=== PATIENT | female | born 1990 | race Two or more races ===

== ENCOUNTER 2021-05-29 14:47 | Observation (INO) | payer MEDICAID ==
[~2021-05-29] VITALS: Ht 162.6 cm; Wt 71.7 kg
[2021-05-29] MEDS ORDERED: PREN-96 PO (15:35)
[2021-05-29 16:30] LABS: Basophils # (auto) 0.1 10 ^3/uL (0-0.2); Basophils % (auto) 0.4 % (0.0-2.0); Eosinophils # (auto) 0.1 10 ^3/uL (0-0.8); Eosinophils % (auto) 0.9 % (0.0-7.0); Hematocrit 32.8 % (36.0-46.0); Hemoglobin 11.4 g/dL (12.2-16.2); Lymphocytes # (auto) 2.3 10 ^3/uL (0.4-5.4); Mean Corpuscular Hgb Conc. 34.6 g/dL (32.0-36.0); Mean Corpuscular Volume 92.4 fL (80.0-100.0); Monocytes # (auto) 1.1 10 ^3/uL (0-1.3); Neutrophils # (auto) 9.2 10 ^3/uL (1.6-8.6); Neutrophils % (auto) 71.7 % (37.0-80.0); Nucleated Red Blood Cells % 0.1 %; Red Blood Cells 3.55 10^6/uL (4.0-5.20); Red Cell Distribution Width 13.1 % (11.8-14.3); White Blood Cell 12.8 10^3/uL (4.4-10.8)
[2021-05-29 16:42] LABS: Albumin 2.7 g/dL (3.4-5.0); Calcium 8.6 mg/dL (8.5-10.1); Potassium 3.7 mmol/L (3.5-5.1)
[2021-05-29 16:46] LABS: BUN/Creatinine Ratio 14.6; Bilirubin, Total 0.2 mg/dL (0.2-1.0); INR 1.01 (0.9-1.15); Partial Thromboplastin Time 24.3 sec (23.6-33.0); Total Protein 7.3 g/dL (6.4-8.2); Uric Acid 2.3 mg/dL (2.6-6.0)
[2021-05-29 16:56] LABS: Urine Bacteria FEW /hpf (None Seen); Urine Blood Negative /uL (Negative); Urine Specific Gravity 1.004 (1.001-1.035); Urine WBC 12 /hpf (0 - 5)
== END 2021-05-29 17:18 | disposition home or self-care (01) ==
LOC: EDBD → LDRP 14:47
PROVIDERS: ADMIT Obstetrics & Gynecology Obstetrics; ATTEND Obstetrics & Gynecology Obstetrics
DX: O26.893 Other specified pregnancy related conditions, third trimester (principal); R03.0 Elevated blood-pressure reading, without diagnosis of hypertension; O62.9 Abnormality of forces of labor, unspecified; Z3A.29 29 weeks gestation of pregnancy; Z87.59 Personal history of other complications of pregnancy, childbirth and the puerperium
CPT/HCPCS: 36415; 59025; 80053; 81001; 81002; 84550; 85025; 85362; 85379; 85610; 85730; 94760; G0378

== ENCOUNTER 2021-06-03 09:06 | Observation (INO) | payer MEDICAID ==
[~2021-06-03 09:06] MED LIST: PREN-96 PO
[2021-06-03 10:32] LABS: Protein, Urine 8.1 mg/dL (0.0-11.9)
[2021-06-03 11:00] LABS: 24 Hr. Total Protein, Urine 218.7 mg/24 Hr (<149.1)
[2021-06-03 14:21] LABS: Urine Bacteria NONE SEEN /hpf (None Seen); Urine Blood Negative /uL (Negative); Urine WBC 4 /hpf (0 - 5)
[2021-06-03 14:33] LABS: Protein, Urine 7.8 mg/dL (0.0-11.9)
== END 2021-06-03 10:33 | disposition home or self-care (01) ==
LOC: LDRP 09:06
PROVIDERS: ADMIT Obstetrics & Gynecology; ATTEND Obstetrics & Gynecology
DX: O13.3 Gestational [pregnancy-induced] hypertension without significant proteinuria, third trimester (principal); Z3A.30 30 weeks gestation of pregnancy; Z79.899 Other long term (current) drug therapy
CPT/HCPCS: 59025; 81001; 81002; 82570; 84156; 94760; G0378

== ENCOUNTER 2021-06-07 14:55 | Observation (INO) | payer MEDICAID | END 2021-06-08 11:47 | disposition home or self-care (01) | LOC: LDRP 06-08 09:00 | PROVIDERS: ADMIT Obstetrics & Gynecology; ATTEND Obstetrics & Gynecology | DX: O13.3 Gestational [pregnancy-induced] hypertension without significant proteinuria, third trimester (principal); O09.293 Supervision of pregnancy with other poor reproductive or obstetric history, third trimester; Z3A.30 30 weeks gestation of pregnancy | CPT/HCPCS: 59025; 76818; 81002; 94760; G0378 ==

== ENCOUNTER 2021-06-12 14:10 | Observation (INO) | payer MEDICAID ==
[2021-06-12 15:58] LABS: Urine Bacteria NONE SEEN /hpf (None Seen); Urine Blood Negative /uL (Negative); Urine Specific Gravity 1.002 (1.001-1.035); Urine WBC 1 /hpf (0 - 5)
[2021-06-12 16:09] LABS: Albumin 2.6 g/dL (3.4-5.0); Calcium 8.8 mg/dL (8.5-10.1)
[2021-06-12 16:09] LABS: Protein, Urine < 5.0 mg/dL (0.0-11.9)
[2021-06-12 16:12] LABS: Bilirubin, Total 0.2 mg/dL (0.2-1.0); Total Protein 7.3 g/dL (6.4-8.2); Uric Acid 2.4 mg/dL (2.6-6.0)
[2021-06-12 16:13] LABS: Basophils # (auto) 0 10 ^3/uL (0-0.2); Basophils % (auto) 0.3 % (0.0-2.0); Eosinophils # (auto) 0.1 10 ^3/uL (0-0.8); Eosinophils % (auto) 0.8 % (0.0-7.0); Hematocrit 32.6 % (36.0-46.0); Hemoglobin 11.2 g/dL (12.2-16.2); Lymphocytes # (auto) 2.1 10 ^3/uL (0.4-5.4); Lymphocytes % (auto) 15.8 % (10.0-50.0); Mean Corpuscular Hemoglobin 31.9 pg (28.0-32.0); Mean Corpuscular Hgb Conc. 34.5 g/dL (32.0-36.0); Mean Corpuscular Volume 92.7 fL (80.0-100.0); Monocytes # (auto) 1.2 10 ^3/uL (0-1.3); Monocytes % (auto) 9.4 % (0.0-12.0); Neutrophils # (auto) 9.6 10 ^3/uL (1.6-8.6); Neutrophils % (auto) 73.7 % (37.0-80.0); Nucleated Red Blood Cells % 0.1 %; Red Blood Cells 3.52 10^6/uL (4.0-5.20); Red Cell Distribution Width 12.7 % (11.8-14.3)
[2021-06-12 16:19] LABS: Creatinine, Urine 6 mg/dL (30.0-125.0)
[2021-06-12 16:48] LABS: Partial Thromboplastin Time 23.6 sec (23.6-33.0)
== END 2021-06-12 17:01 | disposition home or self-care (01) ==
LOC: LDRP 14:10
PROVIDERS: ADMIT Obstetrics & Gynecology Obstetrics; ATTEND Obstetrics & Gynecology Obstetrics
DX: O99.891 Other specified diseases and conditions complicating pregnancy (principal); R00.0 Tachycardia, unspecified; M54.9 Dorsalgia, unspecified; O26.893 Other specified pregnancy related conditions, third trimester; R10.11 Right upper quadrant pain; O99.343 Other mental disorders complicating pregnancy, third trimester; F41.9 Anxiety disorder, unspecified; Z3A.31 31 weeks gestation of pregnancy; Z87.59 Personal history of other complications of pregnancy, childbirth and the puerperium
CPT/HCPCS: 36415; 59025; 80053; 81001; 81002; 82570; 84156; 84550; 85025; 85610; 85730; G0378

== ENCOUNTER 2021-06-15 09:00 | Observation (INO) | payer MEDICAID | END 2021-06-15 11:26 | disposition home or self-care (01) | LOC: LDRP 09:00 | PROVIDERS: ADMIT Obstetrics & Gynecology; ATTEND Obstetrics & Gynecology | DX: O13.3 Gestational [pregnancy-induced] hypertension without significant proteinuria, third trimester (principal); Z3A.31 31 weeks gestation of pregnancy | CPT/HCPCS: 59025; 76818; 81002; 94760; G0378 ==

== ENCOUNTER 2021-06-23 13:00 | Observation (INO) | payer MEDICAID | END 2021-06-23 15:18 | disposition home or self-care (01) | LOC: LDRP 13:00 | PROVIDERS: ADMIT Obstetrics & Gynecology; ATTEND Obstetrics & Gynecology | DX: O13.3 Gestational [pregnancy-induced] hypertension without significant proteinuria, third trimester (principal); Z3A.33 33 weeks gestation of pregnancy | CPT/HCPCS: 59025; 76818; 81002; G0378 ==

== ENCOUNTER 2021-06-30 09:56 | Observation (INO) | payer MEDICAID | END 2021-06-30 16:05 | disposition home or self-care (01) | LOC: LDRP 13:15 → EDBD 13:15 | PROVIDERS: ADMIT Obstetrics & Gynecology; ATTEND Obstetrics & Gynecology | DX: O13.3 Gestational [pregnancy-induced] hypertension without significant proteinuria, third trimester (principal); Z3A.34 34 weeks gestation of pregnancy; Z87.59 Personal history of other complications of pregnancy, childbirth and the puerperium; Z91.040 Latex allergy status | CPT/HCPCS: 59025; 76818; 81002; G0378 ==

== ENCOUNTER 2021-07-06 08:01 | Observation (INO) | payer MEDICAID ==
[~2021-07-06] VITALS: Ht 162.6 cm; Wt 83.5 kg
== END 2021-07-07 15:10 | disposition home or self-care (01) ==
LOC: LDRP 07-07 12:50
PROVIDERS: ADMIT Obstetrics & Gynecology; ATTEND Obstetrics & Gynecology
DX: O13.3 Gestational [pregnancy-induced] hypertension without significant proteinuria, third trimester (principal); O62.9 Abnormality of forces of labor, unspecified; Z3A.35 35 weeks gestation of pregnancy
CPT/HCPCS: 59025; 81002; 94760; G0378; 76818

== ENCOUNTER 2021-07-14 11:30 | Observation (INO) | payer MEDICAID ==
[2021-07-14 14:17] LABS: Urine Bacteria FEW /hpf (None Seen); Urine Blood Negative /uL (Negative); Urine Hyaline Cast FEW /lpf (0 - 2); Urine WBC 23 /hpf (0 - 5)
[2021-07-14 14:20] LABS: Protein, Urine 7.7 mg/dL (0.0-11.9)
[2021-07-14 14:21] LABS: Protein, Urine 16.8 mg/dL (0.0-11.9)
[2021-07-14 14:46] LABS: Basophils # (auto) 0 10 ^3/uL (0-0.2); Basophils % (auto) 0.2 % (0.0-2.0); Eosinophils # (auto) 0.1 10 ^3/uL (0-0.8); Eosinophils % (auto) 1.1 % (0.0-7.0); Hematocrit 33.8 % (36.0-46.0); Hemoglobin 11.4 g/dL (12.2-16.2); Lymphocytes # (auto) 2.2 10 ^3/uL (0.4-5.4); Lymphocytes % (auto) 18.8 % (10.0-50.0); Mean Corpuscular Hemoglobin 31.5 pg (28.0-32.0); Mean Corpuscular Hgb Conc. 33.9 g/dL (32.0-36.0); Monocytes # (auto) 1.1 10 ^3/uL (0-1.3); Monocytes % (auto) 9.6 % (0.0-12.0); Neutrophils # (auto) 8.3 10 ^3/uL (1.6-8.6); Neutrophils % (auto) 70.3 % (37.0-80.0); Red Blood Cells 3.63 10^6/uL (4.0-5.20); Red Cell Distribution Width 13.1 % (11.8-14.3); White Blood Cell 11.8 10^3/uL (4.4-10.8)
[2021-07-14 15:02] LABS: Albumin 2.5 g/dL (3.4-5.0); Calcium 8.6 mg/dL (8.5-10.1); INR 0.96 (0.9-1.15); Partial Thromboplastin Time 22.8 sec (23.6-33.0)
[2021-07-14 15:06] LABS: BUN/Creatinine Ratio 14.3; Bilirubin, Total 0.2 mg/dL (0.2-1.0); Total Protein 7.3 g/dL (6.4-8.2); Uric Acid 2.4 mg/dL (2.6-6.0)
[2021-07-14] MEDS ORDERED: CEPH-322 PO (15:47)
== END 2021-07-14 16:10 | disposition home or self-care (01) ==
LOC: LDRP 13:00
PROVIDERS: ADMIT Obstetrics & Gynecology; ATTEND Obstetrics & Gynecology
DX: O13.3 Gestational [pregnancy-induced] hypertension without significant proteinuria, third trimester (principal); O99.891 Other specified diseases and conditions complicating pregnancy; M54.9 Dorsalgia, unspecified; Z3A.36 36 weeks gestation of pregnancy
CPT/HCPCS: 36415; 59025; 76818; 80053; 81001; 81002; 82570; 84156; 84550; 85025; 85610; 85730; 94760; G0378

== ENCOUNTER 2021-07-18 13:50 | Observation (INO) | payer MEDICAID ==
[~2021-07-18 13:50] MED LIST changes: +CEPH-322 PO
== END 2021-07-18 16:39 | disposition home or self-care (01) ==
LOC: LDRP 13:50
PROVIDERS: ADMIT Obstetrics & Gynecology; ATTEND Obstetrics & Gynecology
DX: O42.92 Full-term premature rupture of membranes, unspecified as to length of time between rupture and onset of labor (principal); Z3A.37 37 weeks gestation of pregnancy
CPT/HCPCS: 59025; 76818; 81002; 84112; 94760; G0378; Q0114

== ENCOUNTER 2021-07-21 13:15 | Observation (INO) | payer MEDICAID | END 2021-07-21 15:54 | disposition home or self-care (01) | LOC: LDRP 13:15 | PROVIDERS: ADMIT Obstetrics & Gynecology; ATTEND Obstetrics & Gynecology | DX: O13.3 Gestational [pregnancy-induced] hypertension without significant proteinuria, third trimester (principal); Z3A.38 38 weeks gestation of pregnancy | CPT/HCPCS: 59025; 76818; 81002; 94760; G0378 ==

== ENCOUNTER 2021-07-25 08:04 | Observation (INO) | payer MEDICAID | END 2021-07-25 16:20 | disposition home or self-care (01) | LOC: LDRP 14:42 | PROVIDERS: ADMIT Obstetrics & Gynecology; ATTEND Obstetrics & Gynecology | DX: O13.3 Gestational [pregnancy-induced] hypertension without significant proteinuria, third trimester (principal); Z3A.38 38 weeks gestation of pregnancy | CPT/HCPCS: 59025; 76818; 81002; 94760; G0378 ==

== ENCOUNTER 2021-07-28 14:26 | Observation (INO) | payer MEDICAID | END 2021-07-30 14:35 | disposition home or self-care (01) | LOC: LDRP 07-30 13:04 | PROVIDERS: ADMIT Obstetrics & Gynecology Obstetrics; ATTEND Obstetrics & Gynecology Obstetrics | DX: O62.9 Abnormality of forces of labor, unspecified (principal); O34.63 Maternal care for abnormality of vagina, third trimester; N89.8 Other specified noninflammatory disorders of vagina; Z3A.38 38 weeks gestation of pregnancy | CPT/HCPCS: 59025; 81002; 94760; G0378 ==

== ENCOUNTER 2021-07-31 10:55 | Inpatient (IN) | payer MEDICAID ==
[~2021-07-31] VITALS: Ht 157.5 cm; Wt 88.5 kg
[2021-07-31 12:22] LABS: Basophils # (auto) 0 10 ^3/uL (0-0.2); Basophils % (auto) 0.3 % (0.0-2.0); Eosinophils # (auto) 0.1 10 ^3/uL (0-0.8); Eosinophils % (auto) 0.4 % (0.0-7.0); Hematocrit 35.1 % (36.0-46.0); Lymphocytes # (auto) 2.7 10 ^3/uL (0.4-5.4); Mean Corpuscular Hemoglobin 31.6 pg (28.0-32.0); Mean Corpuscular Hgb Conc. 34.2 g/dL (32.0-36.0); Mean Corpuscular Volume 92.3 fL (80.0-100.0); Monocytes % (auto) 8.2 % (0.0-12.0); Neutrophils % (auto) 68.1 % (37.0-80.0); Nucleated Red Blood Cells % 0.2 %; Red Blood Cells 3.81 10^6/uL (4.0-5.20); Red Cell Distribution Width 13.4 % (11.8-14.3); White Blood Cell 11.7 10^3/uL (4.4-10.8)
[2021-07-31 12:27] LABS: Urine Bacteria NONE SEEN /hpf (None Seen); Urine Blood Negative /uL (Negative); Urine Specific Gravity 1.009 (1.001-1.035); Urine WBC 2 /hpf (0 - 5)
[2021-07-31 12:33] LABS: Albumin 2.9 g/dL (3.4-5.0); BUN/Creatinine Ratio 14.6; Calcium 8.7 mg/dL (8.5-10.1)
[2021-07-31 12:36] LABS: Bilirubin, Total 0.2 mg/dL (0.2-1.0); Total Protein 7.3 g/dL (6.4-8.2)
[2021-07-31 12:38] LABS: INR 0.92 (0.9-1.15); Partial Thromboplastin Time 23.8 sec (23.6-33.0)
[2021-07-31 12:42] LABS: Alcohol, Urine < 3.0 mg/dL (0-10); Amphetamine Screen, Urine NEGATIVE (NEGATIVE); Barbiturate Scree,Urine NEGATIVE (NEGATIVE); Benzodiazephine Screen, Urine NEGATIVE (NEGATIVE); Cannabinoid Screen, Urine NEGATIVE (NEGATIVE); Cocaine Screen, Urine NEGATIVE (NEGATIVE); Opiate Scree,Urine NEGATIVE (NEGATIVE); Phencyclidine Screen, Urine NEGATIVE (NEGATIVE)
[2021-07-31] MEDS ORDERED: LACTATED RINGER'S 1,000 ML IV ONE (13:45)
[2021-07-31] MEDS ORDERED: MORPHINE SULF PF 5 MG/10 ML VIAL ONE (14:04)
[2021-07-31] MEDS ORDERED: GLYCOPYRROLATE 0.2 MG/ML 1ML VIAL ONE (14:04)
[2021-07-31] MEDS ORDERED: fentaNYL CITRATE 100 MCG/2 ML VL ONE (14:04)
[2021-07-31] MEDS ORDERED: KETOROLAC TROMETH 30 MG/ML 1ML VIAL ONE (14:04)
[2021-07-31] MEDS ORDERED: ePHEDrine SULFATE 50 MG/ML AMP ONE ×2 (14:04→17:47)
[2021-07-31] MEDS ORDERED: ONDANSETRON HCL 4 MG/2 ML VIAL ONE (14:04)
[2021-07-31] MEDS ORDERED: ceFAZolin 2 GM in D5W 5% 100 ML IV ONE (14:15)
[2021-07-31] MEDS ORDERED: oxyTOCIN 10 UNIT/ML 10ML VIAL ONE (14:58)
[2021-07-31] MEDS: LACTATED RINGER'S 1,000 ML IV SCH (16:35)
[2021-07-31] MEDS ORDERED: TETRACAINE 1% INJ 2 ML VIAL IJ ONE (17:01)
[2021-07-31] MEDS ORDERED: DexAMETHasone SOD PHOS 10MG/1ML VIAL INJ ONE (17:47)
[2021-07-31] MEDS ORDERED: MORPHINE SULFATE 4 MG/ML SYR/VIAL IV PRN (18:15)
[2021-07-31] MEDS ORDERED: HYDROmorphone HCL 2 MG/ML VL/or syr IV PRN (18:15)
[2021-07-31] MEDS ORDERED: METOCLOPRAMIDE HCL 5MG/ml INJ 2ml VIAL IV PRN (18:15)
[2021-07-31] MEDS ORDERED: NALOXONE HCL 0.4 MG/ML VIAL IV PRN (18:15)
[2021-07-31 19:30] VITALS: BP 112/73
[2021-07-31] MEDS ORDERED: ONDANSETRON HCL 4 MG/2 ML VIAL IV PRN (19:30)
[2021-07-31] MEDS ORDERED: KETOROLAC TROMETH 30 MG/ML 1ML VIAL IV PRN (19:30)
[2021-07-31] MEDS ORDERED: ePHEDrine SULFATE 50 MG/ML AMP IV PRN (19:30)
[2021-07-31] MEDS ORDERED: SIMETHICONE 80 MG CHEWABLE TABLET PO PRN (19:30)
[2021-07-31] MEDS ORDERED: GUM (CHEWING) 1 GUM CHEW CHEW ONE (19:30)
[2021-07-31 20:30] VITALS: BP 125/80
[2021-07-31] MEDS: diphenhdrAMINE HCL 50 MG/1 ML VL IV PRN (20:30)
[2021-07-31 21:30] VITALS: BP 131/76
[2021-07-31] MEDS ORDERED: RHO (D) IMMUNE GLOBULIN 300 MCG INJ IM ONE (21:30)
[2021-07-31] MEDS: DOCUSATE SOD 100 MG CAP PO SCH (22:00)
[2021-07-31 22:30] VITALS: BP 131/80
[2021-07-31 23:30] VITALS: BP 114/74
[2021-08-01] VITALS (18 sets, daily range): BP systolic 101–131; BP diastolic 59–77
[2021-08-01] MEDS: LACTATED RINGER'S 1,000 ML IV SCH ×3 (02:05→13:45)
[2021-08-01] MEDS ORDERED: HYDROcodone-ACET 5/325MG TAB PO PRN ×2 (06:00)
[2021-08-01] MEDS: IBUPROFEN 600 MG TAB PO SCH ×3 (06:00→18:01)
[2021-08-01] MEDS ORDERED: IBU600T PO (06:33)
[2021-08-01] MEDS ORDERED: DOCU100C10 PO (06:33)
[2021-08-01] MEDS ORDERED: HYDR-4902 PO (06:33)
[2021-08-01 07:11] LABS: RPR Non Reactive (Non Reactive)
[2021-08-01 07:43] LABS: Basophils # (auto) 0 10 ^3/uL (0-0.2); Basophils % (auto) 0.1 % (0.0-2.0); Eosinophils # (auto) 0 10 ^3/uL (0-0.8); Eosinophils % (auto) 0.1 % (0.0-7.0); Hematocrit 32.1 % (36.0-46.0); Hemoglobin 10.9 g/dL (12.2-16.2); Lymphocytes # (auto) 2.1 10 ^3/uL (0.4-5.4); Mean Corpuscular Hemoglobin 31.4 pg (28.0-32.0); Mean Corpuscular Hgb Conc. 34.1 g/dL (32.0-36.0); Mean Corpuscular Volume 92.1 fL (80.0-100.0); Monocytes # (auto) 1.4 10 ^3/uL (0-1.3); Monocytes % (auto) 8.3 % (0.0-12.0); Neutrophils # (auto) 13.9 10 ^3/uL (1.6-8.6); Neutrophils % (auto) 79.5 % (37.0-80.0); Nucleated Red Blood Cells % 0.3 %; Red Blood Cells 3.48 10^6/uL (4.0-5.20); Red Cell Distribution Width 13.3 % (11.8-14.3); White Blood Cell 17.5 10^3/uL (4.4-10.8)
[2021-08-01] MEDS: diphenhdrAMINE HCL 50 MG/1 ML VL IV PRN (18:01)
[2021-08-01] MEDS: DOCUSATE SOD 100 MG CAP PO SCH (21:51)
[2021-08-02] MEDS: IBUPROFEN 600 MG TAB PO SCH ×5 (00:21→20:19)
[2021-08-02 03:40] VITALS: BP 125/82
[2021-08-02 07:30] VITALS: BP 130/79
[2021-08-02 11:30] VITALS: BP 124/85
[2021-08-02 15:18] VITALS: BP 115/68
[2021-08-02 18:30] VITALS: BP 129/76
[2021-08-02] MEDS ORDERED: BISACODYL 10 MG RECT SUPP PR PRN (22:00)
[2021-08-02 23:00] VITALS: BP 115/74
[2021-08-03] MEDS: DOCUSATE SOD 100 MG CAP PO SCH (00:39)
[2021-08-03 03:00] VITALS: BP 118/77
[2021-08-03 07:30] VITALS: BP 114/82
[2021-08-03] MEDS: IBUPROFEN 600 MG TAB PO SCH (08:07)
[2021-08-03 10:54] VITALS: BP 120/88
== END 2021-08-03 10:55 | disposition home or self-care (01) | DRG 539 ==
LOC: LDRP 10:55 → OBSVTOIN 12:00 → LDRP 20:01
PROVIDERS: ADMIT Obstetrics & Gynecology Obstetrics; ATTEND Obstetrics & Gynecology Obstetrics
PROC: 0UB70ZZ Excision of Bilateral Fallopian Tubes, Open Approach (ICD-10-PCS; 2021-07-31)
PROC: 10D00Z1 Extraction of Products of Conception, Low, Open Approach (ICD-10-PCS; principal; 2021-07-31 17:28)
PROC: 3E0234Z Introduction of Serum, Toxoid and Vaccine into Muscle, Percutaneous Approach (ICD-10-PCS; 2021-08-01)
DX: O34.211 Maternal care for low transverse scar from previous cesarean delivery (principal); O26.893 Other specified pregnancy related conditions, third trimester; O69.81X0 Labor and delivery complicated by cord around neck, without compression, not applicable or unspecified; Z20.822 Contact with and (suspected) exposure to COVID-19; Z30.2 Encounter for sterilization; Z37.0 Single live birth; Z3A.39 39 weeks gestation of pregnancy; Z88.8 Allergy status to other drugs, medicaments and biological substances; Z67.41 Type O blood, Rh negative
CPT/HCPCS: 36415; 59025; 80053; 80307; 81001; 81002; 84112; 85025; 85610; 85730; 86592; 86850; 86870; 86900; 86901; 90384; 94760; 96360; 96361; 96365; 96366; 96374; G0378; J0690; J1100; J1885; J2405; J2590; J7060